=== PATIENT | male | born 1955 | race Hispanic/Latino ===

== ENCOUNTER → 2020-12-23 | Outpatient (CLI) | payer OTHER ==
[~2020-12-23] MED LIST: ADAL10SY SQ; BUDE10.2 IH; CELE200C PO; FERS325 PO
== END | disposition home or self-care (01) ==
LOC: OIH 13:59
PROVIDERS: ATTEND Internal Medicine
DX: M19.072 Primary osteoarthritis, left ankle and foot (principal); M19.071 Primary osteoarthritis, right ankle and foot; M85.842 Other specified disorders of bone density and structure, left hand; M85.841 Other specified disorders of bone density and structure, right hand; M20.11 Hallux valgus (acquired), right foot; M79.89 Other specified soft tissue disorders
CPT/HCPCS: 73620

== ENCOUNTER → 2022-05-04 | Outpatient (CLI) | payer OTHER | END | disposition home or self-care (01) | LOC: RAH 15:18 | PROVIDERS: ATTEND Internal Medicine | DX: M79.89 Other specified soft tissue disorders (principal); L84 Corns and callosities; L03.032 Cellulitis of left toe | CPT/HCPCS: 73630 ==